=== PATIENT | male | born 1995 | race Two or more races ===

== ENCOUNTER 2018-07-21 19:39 | Emergency (ER) | payer SELFPAY ==
[~2018-07-21] VITALS: Ht 175.3 cm; Wt 74.4 kg
[2018-07-21 20:04] VITALS: BP 125/60
[2018-07-21] MEDS ORDERED: ACETAMINOPHEN 500 MG TABLET PO ONE (20:15)
[2018-07-21 20:46] LABS: INFLUENZA A PATIENT NEGATIVE (NEGATIVE); INFLUENZA B PATIENT NEGATIVE (NEGATIVE)
--- NOTE | 2018-07-21 21:00 | PHYS DOC ---
Past Medical History Past Medical History: No Pertinent History Past Surgical History: No Surgical History Alcohol Use: Occasionally Drug Use: None Adult General Chief Complaint Chief Complaint: SORE THROAT HPI HPI Patient is a 22 year old male, accompanied by his friend, with complaints of sore throat, bodyaches, and fever since last night. Patient denies any nausea, vomiting, diarrhea, or abdominal pain. He does report a dry cough in addition to previously mentioned complaints. Patient denies the wheezing, shortness of breath, rash, or your pain. He reports that he did receive his flu shot last fall. Review of Systems Review of Systems Constitutional: reports fever, chills, fatigue, and body aches Eyes: Denies discharge or eye pain [] HENT: see HPI Respiratory: Denies wheezing or shortness of breath [] Cardiovascular: No additional information not addressed in HPI [] GI: Denies abdominal pain, nausea, vomiting, or diarrhea [] Musculoskeletal: reports bodyaches Integument: Denies rash Neurologic: Denies focal weakness or sensory changes [] Current Medications Current Medications Current Medications Medications (Trade) Dose Ordered Sig/Dolores Start Time Stop Time Status Last Admin Dose Admin Acetaminophen (Tylenol) 1,000 mg 1X ONCE 07/21/18 20:15 07/21/18 20:17 DC 07/21/18 20:30 1,000 MG Ibuprofen (Motrin) 800 mg 1X ONCE 07/21/18 21:30 07/21/18 21:30 DC 07/21/18 21:19 800 MG Allergies Allergies Allergies Coded Allergies Type Severity Reaction Last Updated Verified No Known Drug Allergies 07/21/18 No Physical Exam Physical Exam Constitutional: Well developed, well nourished, no acute distress, ill appearance. [] HENT: Normocephalic, atraumatic, bilateral external ears normal, bilateral TMs normal, mild erythema posterior pharynx, oropharynx moist, no oral exudates, nose normal. [] Eyes: PERRLA, conjunctiva injected, no discharge. [] Neck: Normal range of motion, no tenderness, supple, no stridor. [] Cardiovascular:Heart rate regular rhythm, no murmur [] Lungs & Thorax: Bilateral breath sounds clear to auscultation [] Skin: flushed, hot, dry, no rash. [] Extremities: No cyanosis, no clubbing, no edema. [] Neurologic: Alert and oriented X 3, normal motor function, normal sensory function, no focal deficits noted. [] Psychologic: Affect normal, judgement normal, mood normal. [] Current Patient Data Vital Signs Vital Signs Date Time Temp Pulse Resp B/P (MAP) Pulse Ox O2 Delivery O2 Flow Rate FiO2 07/21/18 21:05 103.0 103.0 07/21/18 20:04 84 16 125/60 (81) 99 Room Air Lab Values Laboratory Tests Test 07/21/18 20:15 07/21/18 20:20 Group A Streptococcus Rapid Negative (NEGATIVE) Influenza Type A Antigen Negative (NEGATIVE) Influenza Type B Antigen Negative (NEGATIVE) Microbiology 07/21/18 Throat Culture - Final, Complete 07/21/18 - Final, Complete EKG EKG [] Radiology/Procedures Radiology/Procedures influenza and rapid strep are negative[] Course & Med Decision Making Course & Med Decision Making Pertinent Labs and Imaging studies reviewed. (See chart for details) dx: pharyngitis, flulike illness, fever patient was given 800 mg of ibuprofen and 1 gram of PO Tylenol in the emergency department. He was instructed to do warm salt water gargles as needed for throat discomfort. Recommended the use of a Cool mist humidifier in room at bedtime. Alternate Tylenol or ibuprofen as needed for pain/fever. Increase clear fluids. Avoid airway triggers such as smoke, fragrance, dust, and pollen. May take [id number] cough suppressants as needed. Follow-up with your primary care doctor symptoms persist, return to the ER symptoms worsen. Pt verbalized an understanding of discharge, medications, follow-up, home care, and return to ED precautions, was in agreement with POC. [] Dragon Disclaimer Dragon Disclaimer This electronic medical record was generated, in whole or in part, using a voice recognition dictation system. Departure Departure Impression: Primary Impression: Flu-like symptoms Additional Impressions: Pharyngitis Fever Disposition: 01 HOME, SELF-CARE Condition: STABLE Referrals: NO PCP (PCP) Patient Instructions: Influenza, Adult, Viral and Bacterial Pharyngitis, Easy- to-Read Additional Instructions: Warm salt water gargles as needed for throat discomfort. Recommend use of a Cool mist humidifier in room at bedtime. Alternate Tylenol or ibuprofen as needed for pain/fever. Increase clear fluids. Avoid airway triggers such as smoke, fragrance, dust, and pollen. May take [id number] cough suppressants as needed. Follow-up with your primary care doctor symptoms persist , return to the ER symptoms worsen. Problem Qualifiers Additional Impressions: Pharyngitis Pharyngitis/tonsillitis etiology: unspecified etiology Qualified Codes: J02.9 - Acute pharyngitis, unspecified Fever Fever type: unspecified Qualified Codes: R50.9 - Fever, unspecified JASWINDER HERRERA APRN Jul 21, 2018 21:00
[2018-07-21] MEDS ORDERED: IBUPROFEN 400 MG TABLET. PO ONE (21:30)
== END 2018-07-21 21:25 | disposition home or self-care (01) ==
LOC: ER 19:39
DX: J02.9 Acute pharyngitis, unspecified (principal); R50.9 Fever, unspecified; R53.83 Other fatigue; M79.18 Myalgia, other site
CPT/HCPCS: 87070; 87804; 87880; 99283

== ENCOUNTER 2018-07-22 16:38 | Emergency (ER) | payer SELFPAY ==
[~2018-07-22] VITALS: Ht 185.4 cm; Wt 74.4 kg
[2018-07-22 17:03] VITALS: BP 133/76
--- NOTE | 2018-07-22 17:14 | PHYS DOC ---
Past Medical History Past Medical History: No Pertinent History (JARRED GOMES APRN) Past Surgical History: No Surgical History (JARRED GOMES APRN) Alcohol Use: Occasionally Drug Use: None (JARRED GOMES APRN) Adult General Chief Complaint Chief Complaint: SORE THROAT HPI HPI 22-year-old male returns to the ER after being evaluated last night for flulike illness and sore throat. Pt had negative flu and strep test while in the ER and was provided with dose of Tylenol. He reports last dose of tylenol was at 10 a.m. today denies any other OTC meds for fever/pain. He reports his throat became more swollen and sore today. He denies earache, cough, ARVIZU, or N/V/D. Pt's friend at bedside is translating as pt speaks minimal Pashto. (JARRED GOMES APRN) Review of Systems Review of Systems Constitutional: Reports fever/chills Eyes: Denies change in visual acuity, redness, or eye pain [] HENT: Denies nasal congestion. Reports sore throat with increased swelling/pain today- denies inability to swallow Respiratory: Denies cough or shortness of breath [] Cardiovascular: No additional information not addressed in HPI [] GI: Denies abdominal pain, nausea, vomiting, bloody stools or diarrhea [] : Denies dysuria or hematuria [] Musculoskeletal: Denies back pain or joint pain [] Integument: Denies rash or skin lesions [] Neurologic: Denies headache, focal weakness or sensory changes [] All other systems were reviewed and found to be within normal limits, except as documented in this note. (JARRED GOMES APRN) Current Medications Current Medications Current Medications Medications (Trade) Dose Ordered Sig/Dolores Start Time Stop Time Status Last Admin Dose Admin Acetaminophen/ Hydrocodone Bitart (Lortab 5/325) 1 tab 1X ONCE 07/22/18 17:45 07/22/18 17:46 DC 07/22/18 17:55 1 TAB Dexamethasone Sodium Phosphate (Decadron) 10 mg 1X ONCE 07/22/18 17:15 07/22/18 17:16 DC 07/22/18 17:10 10 MG Ibuprofen (Motrin) 800 mg 1X ONCE 07/22/18 17:15 07/22/18 17:16 DC 07/22/18 17:10 800 MG Penicillin G Benzathine (Bicillin L-A) 1,200,000 unit 1X ONCE 07/22/18 17:45 07/22/18 17:46 DC 07/22/18 17:54 1,200,000 UNIT (ELANA DE LOS SANTOS MD) Allergies Allergies Allergies Coded Allergies Type Severity Reaction Last Updated Verified No Known Drug Allergies 07/21/18 No (ELANA DE LOS SANTOS MD) Physical Exam Physical Exam Constitutional: Well developed, well nourished, mild distress, non-toxic appearance. [] HENT: Normocephalic, atraumatic, mild erythema bilat. TM without bulging/ perforation/purulent drainage, oropharynx moist- bilat. tonsillar swelling with exudate- uvula midline- pharyngeal swelling which makes visualization of posterior throat difficult, strep like odor on breath, nose normal. [] Eyes: Pupils equal, conjunctiva normal, no discharge. [] Neck: Normal range of motion, supple, no stridor. [] Cardiovascular: Heart rate regular rhythm, no murmur [] Lungs & Thorax: Bilateral breath sounds clear to auscultation [] Abdomen: Bowel sounds normal, soft, no tenderness, no masses, no pulsatile masses. [] Skin: Warm, dry, no erythema, no rash. [] Back: No tenderness, no CVA tenderness. [] Extremities: No tenderness, no cyanosis, no clubbing, ROM intact, no edema. [] Neurologic: Alert and oriented X 3, normal motor function, normal sensory function, no focal deficits noted. [] Psychologic: Affect normal, judgement normal, mood normal. [] (JARRED GOMES APRN) Current Patient Data Vital Signs Vital Signs Date Time Temp Pulse Resp B/P (MAP) Pulse Ox O2 Delivery O2 Flow Rate FiO2 07/22/18 17:55 16 99 Room Air 07/22/18 17:03 101.5 96 133/76 (95) 101.5 (ELANA DE LOS SANTOS MD) EKG EKG [] (JARRED GOMES APRN) Radiology/Procedures Radiology/Procedures [] (JARRED GOMES APRN) Course & Med Decision Making Course & Med Decision Making Pertinent Labs and Imaging studies reviewed. (See chart for details) On initial exam patient had significant tonsillar swelling bilateral with visible exudate. Patient had strong smell of strep on his breath. Pt was provided dose of Decadron and ibuprofen and on reexamination his tonsillar swelling had improved and visibility of posterior pharyngeal was accessible. No peritonsillar abscess visualized. Uvula remains midline. Patient is swallowing without pooling of secretions or labored respirations. With pt's tonsillar swelling/erythema and visible exudate on bilat. tonsils along with strong smell one will have with strep- will give dose of IM Bicillin LA and provide [place] tab for additional pain relief prior to discharge. Pt is in less distress- smiling and joking with friend regarding IM injection. Discussed OTC tylenol and ibuprofen for pain and fever. Will provide pt with clinic/physician referral info for f/u purposes. Encouraged pt to increase fluids and warm salty swishes. Education provided on s&s to return to ER for and discharge instructions were discussed. (JARRED GOMES APRN) Course & Med Decision Making Staff Physician Addendum: I was working in the ER during the course of this patient's visit. I was available for consultation as needed, but I was not directly involved in the care of this patient. (ELANA DE LOS SANTOS MD) Dragon Disclaimer Dragon Disclaimer This electronic medical record was generated, in whole or in part, using a voice recognition dictation system. (JARRED GOMES APRN) Departure Departure Impression: Primary Impression: Pharyngitis Disposition: 01 HOME, SELF-CARE Condition: STABLE Referrals: NO PCP (PCP) Patient Instructions: Viral and Bacterial Pharyngitis Additional Instructions: Tylenol and ibuprofen for fever and pain control as directed on container. Warm salty swishes multiple times a day for throat pain. Drink plenty of water. If symptoms persist follow-up with primary care physician for reevaluation and further care. You were given a penicillin shot today for treatment of strep throat. JARRED GOMES APRN Jul 22, 2018 17:13 ELANA DE LOS SANTOS MD Jul 23, 2018 19:03
[2018-07-22] MEDS ORDERED: IBUPROFEN 400 MG TABLET. PO ONE (17:15)
[2018-07-22] MEDS ORDERED: DEXAMETHASONE SOD PHOS 20 MG/5 ML VIAL. PO ONE (17:15)
[2018-07-22] MEDS ORDERED: HYDROcodone/APAP 5/325MG 1 TAB TABLET PO ONE (17:45)
[2018-07-22] MEDS ORDERED: PENICILLIN G BENZATHINE LA 1,200,000 UNIT/2 ML DISP.SYRIN. IM ONE (17:45)
== END 2018-07-22 18:15 | disposition home or self-care (01) ==
LOC: ER 16:38
DX: J02.9 Acute pharyngitis, unspecified (principal)
CPT/HCPCS: 96372; 99284; J0561; J1100